=== PATIENT | female | born 1985 | race American Indian/Alaskan Native ===

== ENCOUNTER 2016-06-23 16:55 | Emergency (ER) | payer MEDICAID ==
[2016-06-23 17:33] VITALS: BP 149/94
== END 2016-06-23 21:30 | disposition left against medical advice (07) ==
LOC: ED 16:55
DX: R05 Cough (principal); M79.1 Myalgia; J02.9 Acute pharyngitis, unspecified; Z53.21 Procedure and treatment not carried out due to patient leaving prior to being seen by health care provider

== ENCOUNTER 2021-04-26 09:07 | Emergency (ER) | payer MEDICAID | END 2021-04-26 10:37 | disposition left against medical advice (07) | LOC: ED 09:07 | DX: R53.1 Weakness (principal); Z53.21 Procedure and treatment not carried out due to patient leaving prior to being seen by health care provider ==

== ENCOUNTER 2021-04-27 19:33 | Emergency (ER) | payer MEDICAID ==
--- NOTE | 2021-04-27 20:07 | Emergency Department Report ---
ED Psych HPI - General Chief Complaint: Psych Time Seen by Provider: 04/27/21 19:55 Source: EMS Mode of arrival: Stretcher - History of Present Illness Initial Comments: Patient was brought in by EMS for bizarre behavior. Apparently somebody called because the patient was having bizarre behavior. She reportedly has a history of bipolar disease and has been noncompliant with medications for months. The patient states that she does not know why she is here. She believes that "Jonty" called and she does not know why. She will not tell me how they are related. She states that he must of called because she was rolling around on the floor. She states that she feels well now. She does admit that she probably needs an evaluation. She is not suicidal or homicidal. Patient states that she is not hearing voices. - Related Data Previous Rx's Medication Instructions Recorded Last Taken Type Potassium Chloride [K-Dur] 20 meq PO QDAY #10 tablet 12/14/12 03/05/[address] [Teo Baker] 250 mg PO TID #30 tablet 02/01/13 03/05/13 Rx risperiDONE [RisperDAL] 2 mg PO QDAY #10 tab 02/01/13 03/05/13 Rx Ibuprofen [Motrin] 600 mg PO Q6H PRN #20 tablet 02/13/13 03/05/13 Rx Prednisone 60 mg PO QDAY #12 tablet 02/13/13 03/05/13 Rx hydrOXYzine PAMOATE (NF) [Vistaril 25 mg PO Q6HR PRN #20 capsule 02/13/13 03/05/13 Rx (Nf)] methOCARBAMOL [Robaxin] 750 mg PO BID #14 tab 02/13/13 03/05/13 Rx Acetaminophen/Codeine [Tylenol #3] 1 tab PO Q6H PRN #20 tab 12/06/14 Unknown Rx Clindamycin [Clindamycin CAP] 300 mg PO Q6H #40 capsule 12/06/14 Unknown Rx Fluticasone [Flonase] 2 spray NS QDAY #1 bottle 12/06/14 Unknown Rx Prednisone [predniSONE 10 mg 10 mg PO .TAPER #1 tab.ds.pk 12/06/14 Unknown Rx (6-Day Pack, 21 Tabs)] hydrOXYzine PAMOATE [Vistaril] 25 mg PO Q6HR PRN #20 capsule 12/22/18 Unknown Rx risperiDONE [Risperdal] 2 mg PO QDAY #30 tablet 12/22/18 Unknown Rx Allergies Allergy/AdvReac Type Severity Reaction Status Date / Time Penicillins Allergy Unknown Verified 06/23/16 17:33 diphenhydramine HCl AdvReac Intermediate nausea, Verified 06/23/16 17:33 [From Benadryl] syncope ED Review of Systems ROS: Stated complaint: Other details as noted in HPI Comment: All other systems reviewed and negative Constitutional: denies: fever Eyes: denies: eye pain ENT: denies: throat pain Respiratory: denies: cough Cardiovascular: denies: chest pain Endocrine: denies: unexplained weight loss Gastrointestinal: denies: abdominal pain Genitourinary: denies: dysuria Musculoskeletal: denies: back pain Skin: denies: rash Neurological: denies: headache Psychiatric: as per HPI Hematological/Lymphatic: denies: easy bruising ED Past Medical Hx - Past Medical History Hx Psychiatric Treatment: Yes (schizo-effective, bipolar) Additional medical history: manic/depression - Surgical History Past Surgical History?: Yes - Family History Family history: other (Psychiatric disease) - Social History Smoking Status: Current Every Day Smoker (1/2 pack per day) Substance Use Type: None (denies illicit drug use), Alcohol (occasional) - Medications Home Medications: Home Medications Medication Instructions Recorded Confirmed Last Taken Type Potassium Chloride [K-Dur] 20 meq PO QDAY #10 tablet 12/14/12 03/06/13 03/05/[address] [Teo Dr] 250 mg PO TID #30 tablet 02/01/13 03/06/13 03/05/13 Rx risperiDONE [RisperDAL] 2 mg PO QDAY #10 tab 02/01/13 03/06/13 03/05/13 Rx Ibuprofen [Motrin] 600 mg PO Q6H PRN #20 tablet 02/13/13 03/06/13 03/05/13 Rx Prednisone 60 mg PO QDAY #12 tablet 02/13/13 03/06/13 03/05/13 Rx hydrOXYzine PAMOATE (NF) [Vistaril 25 mg PO Q6HR PRN #20 capsule 02/13/13 03/06/1313 Rx (Nf)] methOCARBAMOL [Robaxin] 750 mg PO BID #14 tab 02/13/13 03/06/13 03/05/13 Rx Acetaminophen/Codeine [Tylenol #3] 1 tab PO Q6H PRN #20 tab 12/06/14 Unknown Rx Clindamycin [Clindamycin CAP] 300 mg PO Q6H #40 capsule 12/06/14 Unknown Rx Fluticasone [Flonase] 2 spray NS QDAY #1 bottle 12/06/14 Unknown Rx Prednisone [predniSONE 10 mg 10 mg PO .TAPER #1 tab.ds.pk 12/06/14 Unknown Rx (6-Day Pack, 21 Tabs)] hydrOXYzine PAMOATE [Vistaril] 25 mg PO Q6HR PRN #20 capsule 12/22/18 Unknown Rx risperiDONE [Risperdal] 2 mg PO QDAY #30 tablet 12/22/18 Unknown Rx ED Physical Exam - General Limitations: No Limitations, Other (Pulse ox noted and normal by EMS) General appearance: alert, in no apparent distress, obese - Head Head exam: Present: atraumatic, normocephalic - Eye Eye exam: Present: normal appearance, EOMI - ENT ENT exam: Present: normal orophraynx, normal external ear exam - Neck Neck exam: Present: normal inspection. Absent: meningismus - Respiratory Respiratory exam: Present: normal lung sounds bilaterally. Absent: respiratory distress - Cardiovascular Cardiovascular Exam: Present: regular rate, normal rhythm - GI/Abdominal GI/Abdominal exam: Present: soft - Extremities Exam Extremities exam: Present: normal capillary refill - Back Exam Back exam: Present: full ROM - Neurological Exam Neurological exam: Present: alert, altered (Patient is mumbling and talking about things that may or may not have happened. She is talking about people but we cannot verify there existence.), CN II-XII intact, normal gait. Absent: motor sensory deficit - Psychiatric Psychiatric exam: Present: anxious, other (Tearful) - Skin Skin exam: Present: warm, dry ED Course - Reevaluation(s) Reevaluation #1: 04/27/21 20:06 EMS was met. Labs and psychiatric evaluation have been ordered. Patient is not actively suicidal or homicidal. She is here on a voluntary basis. Old records noted. 04/27/21 20:06 ED Medical Decision Making - Medical Decision Making Patient presents for psychiatric evaluation. She seems to be demonstrating manic behavior. She is not actively suicidal or homicidal. She does not appear to be grossly unkempt. There is no evidence of delusion. There is no family member present at this time. We will medically evaluate the patient and then have psychiatric services evaluate her in addition. Critical Care Time: No Critical care attestation.: If time is entered above; I have spent that time in minutes in the direct care of this critically ill patient, excluding procedure time. ED Disposition Clinical Impression: Noncompliance, Manic behavior Disposition: 30 STILL A PATIENT Is pt being admited?: No Condition: Stable
[2021-04-27 20:30] LABS: Basophils # (Auto) 0.1 K/mm3 (0.0-0.1); Basophils % (Auto) 0.5 % (0.0-1.8); Eosinophils % (Auto) 0.3 % (0.0-4.3); Hematocrit 28.6 % (30.3-42.9); Hemoglobin 8.6 gm/dl (10.1-14.3); Lymphocytes # (Auto) 2.5 K/mm3 (1.2-5.4); Mean Corpuscular HGB Conc 30 % (30-34); Monocytes # (Auto) 1.6 K/mm3 (0.0-0.8); Monocytes % (Auto) 9.9 % (0.0-7.3); Platelet Count 423 K/mm3 (140-440); Red Blood Count 4.19 M/mm3 (3.65-5.03); Red Cell Distribution Width 19.1 % (13.2-15.2)
[2021-04-27 20:31] LABS: Mean Corpuscular Volume 68 fl (79-97)
[2021-04-27 20:43] LABS: Amphetamine Screen,Urine Negative; Benzodiazepines Screen,Urine Negative; Cannabinoid Screen,Urine Negative; Methadone Screen,Urine Negative; Opiate Screen,Urine Negative
[2021-04-27] MEDS ORDERED: ZIPRASIDONE MESYLATE 20 MG VIAL IM ONE (20:48)
[2021-04-27 20:52] LABS: Alanine Aminotransferase 31 units/L (7-56); Albumin 4.1 g/dL (3.9-5); Blood Urea Nitrogen 5 mg/dL (7-17); Hemolysis Index 1
[2021-04-27 20:53] LABS: BUN/Creatinine Ratio 7
[2021-04-27 20:56] LABS: Cocaine Screen,Urine Positive
[2021-04-27 23:00] LABS: Bilirubin,Urine NEG (Negative); Blood,Urine NEG (Negative); Color,Urine Yellow (Yellow); Protein,Urine <15 mg/dL mg/dL (Negative); RBC,Urine < 1.0 /HPF (0.0-6.0); Urobilinogen,Urine < 2.0 mg/dL (<2.0)
[2021-04-28] MEDS ORDERED: SODIUM CHLORIDE IRRI 500 ML 500 ML IR ONE (08:48)
[2021-04-28 09:05] VITALS: BP 142/81
--- NOTE | 2021-04-28 10:30 | Consultation ---
History of Present Illness - Reason for Consult Consult date: 04/28/21 Reason for consult: Mental health evaluation - History of Present Psychiatric Illness The patient is a 36 year old female who presents to the ED. The patient states she came to the ED for mental health evaluation. The patient is calm, alert and oriented x3. she reports that she was recently released from [facility]. The patient denies any current suicidal/homicidal ideation and denies hallucinations. PAST PSYCHIATRIC HISTORY: Diagnoses: Bipolar Suicide attempts or Self-harm behavior: Denies Prior psychiatric hospitalizations:Yes Substance Abuse history: Denies Previous psychiatric medications tried:Unable to recall Outpatient treatment:unknown PAST MEDICAL HISTORY: Family Psychiatric History: None reported or documented SOCIAL HISTORY Marital Status: Single Living Arrangements: Lives with daughters father Employment Status:Employed Access to guns/weapons: Denies Education:Some college History of Abuse: Denies Legal History:Unknown REVIEW OF SYSTEMS Constitutional: Negative for weight loss ENT: Negative for stridor Respiratory: Negative for cough or hemoptysis All other systems reviewed and are negative MENTAL STATUS EXAMINATION General Appearance and Behavior: Age appropriate, good hygiene, wearing appropriate clothes, cooperative polite with questioning. Cooperation: cooperative Psychomotor Behavior: Normal Mood: calm Affect and affective range:congruent Thought Process:goal directed Thought Content:reality Oriented Speech:Normal Intellectual Functioning: Average Suicidal Ideation:Denies Homicidal Ideation: Denies Hallucination: Denies Impulse Control:Normal Insight and Judgment:limited insight and good judgment Memory: Intact Attention:Normal Orientation: Alert and oriented Diagnoses: (1)Hx Bipolar Treatment Plan: Continue - Home Medications. Patient should be compliant with medications and not to use drugs and not to drink alcohol. PSYCHOTHERAPY: Supportive psychotherapy provided MEDICAL: Per primary team DELIRIUM PRECAUTIONS: Please re-orient patient frequently, keep lights on during the day, and minimize benzodiazepines and opiates as these medications could worsen patient's confusion. COMMUNITY SERVICES COORDINATOR: Per medical team DISPOSITION: Do not recommend acute inpatient psychiatric hospitalization at this time. Validation Consultant will provide patient with psychiatric out-patient resources FOLLOW-UP: Will sign off. Thank you for the consult. Please contact with any questions and/or concerns. Medications and Allergies Allergies Medications and Allergies Allergies Allergy/AdvReac Type Severity Reaction Status Date / Time Penicillins Allergy Unknown Verified 06/23/16 17:33 diphenhydramine HCl AdvReac Intermediate nausea, Verified 06/23/16 17:33 [From [facility]] syncope Home Medications Medication Instructions Recorded Confirmed Last Taken Type Potassium Chloride [K-Dur] 20 meq PO QDAY #10 tablet 12/14/12 03/06/13 03/05/13 Rx Divalproex [Teo Baker] 250 mg PO TID #30 tablet 02/01/13 03/06/13 03/05/13 Rx risperiDONE [RisperDAL] 2 mg PO QDAY #10 tab 02/01/13 03/06/13 03/05/13 Rx Ibuprofen [Motrin] 600 mg PO Q6H PRN #20 tablet 02/13/13 03/06/13 03/05/13 Rx Prednisone 60 mg PO QDAY #12 tablet 02/13/13 03/06/13 03/05/13 Rx hydrOXYzine PAMOATE (NF) [Vistaril 25 mg PO Q6HR PRN #20 capsule 02/13/13 03/06/13 03/05/13 Rx (Nf)] methOCARBAMOL [Robaxin] 750 mg PO BID #14 tab 02/13/13 03/06/13 03/05/13 Rx Acetaminophen/Codeine [Tylenol #3] 1 tab PO Q6H PRN #20 tab 12/06/14 Unknown Rx Clindamycin [Clindamycin CAP] 300 mg PO Q6H #40 capsule 12/06/14 Unknown Rx Fluticasone [Flonase] 2 spray NS QDAY #1 bottle 12/06/14 Unknown Rx Prednisone [predniSONE 10 mg 10 mg PO .TAPER #1 tab.ds.pk 12/06/14 Unknown Rx (6-Day Pack, 21 Tabs)] hydrOXYzine PAMOATE [Vistaril] 25 mg PO Q6HR PRN #20 capsule 12/22/18 Unknown Rx risperiDONE [Risperdal] 2 mg PO QDAY #30 tablet 12/22/18 Unknown Rx Mental Status Exam - Vital signs Last Vital Signs Temp 98.2 F 04/28/21 09:04 Pulse 103 H 04/28/21 09:04 Resp 18 04/28/21 09:04 BP 142/81 04/28/21 09:04 Pulse Ox 99 04/28/21 09:04 Results Result Diagrams: 04/27/21 20:13 04/27/21 20:13 Abnormal lab results 04/27/21 04/27/21 Range/Units 20:13 20:13 WBC 15.8 H (4.5-11.0) K/mm3 Hgb 8.6 L (10.1-14.3) gm/dl Hct 28.6 L (30.3-42.9) % MCV 68 L (79-97) fl MCH 20 L (28-32) pg RDW 19.1 H (13.2-15.2) % [place] % (Auto) 9.9 H (0.0-7.3) % [place] # (Auto) 1.6 H (0.0-0.8) K/mm3 Seg Neutrophils % 73.3 H (40.0-70.0) % Seg Neutrophils # 11.6 H (1.8-7.7) K/mm3 BUN 5 L (7-17) mg/dL Glucose 105 H (65-100) mg/dL AST 54 H (5-40) units/L All other labs normal.
--- NOTE | 2021-04-28 12:35 | Emergency Department Report ---
Blank Doc - Documentation Documentation: Chart reviewed: Patient with history of bipolar disorder presented with manic/ bizarre behavior. As per mental health note patient was recently discharged from [facility]. She has been cleared by mental health for discharge to continue current medications. UDS positive for cocaine
== END 2021-04-28 12:57 | disposition home or self-care (01) ==
LOC: ED 19:33 → EEVIPCON 19:33 → ED 04-28 12:57
DX: F31.9 Bipolar disorder, unspecified (principal); Z91.19 Patient's noncompliance with other medical treatment and regimen; F25.9 Schizoaffective disorder, unspecified; F17.200 Nicotine dependence, unspecified, uncomplicated; Z88.0 Allergy status to penicillin; Z88.1 Allergy status to other antibiotic agents; Z79.899 Other long term (current) drug therapy; Z98.890 Other specified postprocedural states
CPT/HCPCS: 36415; 80053; 80307; 81001; 84443; 84703; 85025; 96372; 99284; J3486; 80320; G0480

== ENCOUNTER 2021-07-21 12:56 | Emergency (ER) | payer MEDICAID ==
[2021-07-21 14:17] VITALS: BP 137/94
--- NOTE | 2021-07-21 14:43 | Emergency Department Report ---
ED Psych HPI - General Chief Complaint: Psych Stated Complaint: PTSD Time Seen by Provider: 07/21/21 14:40 Source: patient Mode of arrival: Ambulatory - History of Present Illness Initial Comments: Patient is 36 years old female with history of bipolar disorder. Patient presented to the ER stating that she wanted mental health evaluation. Patient told the triage nurse that somebody is trying to get her when she went to a hotel. Patient is delusional and paranoid. Upon my interview with the patient is answering no for all questions. He denies suicidal or homicidal ideation. She also denied any visual or auditory hallucination. MD Complaint: altered mental status - Related Data Previous Rx's Medication Instructions Recorded Last Taken Type Potassium Chloride [K-Dur] 20 meq PO QDAY #10 tablet 12/14/12 03/05/[address] [Depakote Dr] 250 mg PO TID #30 tablet 02/01/13 03/05/13 Rx risperiDONE [RisperDAL] 2 mg PO QDAY #10 tab 02/01/13 03/05/13 Rx Ibuprofen [Motrin] 600 mg PO Q6H PRN #20 tablet 02/13/13 03/05/13 Rx Prednisone 60 mg PO QDAY #12 tablet 02/13/13 03/05/13 Rx hydrOXYzine PAMOATE (NF) [Vistaril 25 mg PO Q6HR PRN #20 capsule 02/13/13 03/05/13 Rx (Nf)] methOCARBAMOL [Robaxin] 750 mg PO BID #14 tab 02/13/13 03/05/13 Rx Acetaminophen/Codeine [Tylenol #3] 1 tab PO Q6H PRN #20 tab 12/06/14 Unknown Rx Clindamycin [Clindamycin CAP] 300 mg PO Q6H #40 capsule 12/06/14 Unknown Rx Fluticasone [Flonase] 2 spray NS QDAY #1 bottle 12/06/14 Unknown Rx Prednisone [predniSONE 10 mg 10 mg PO .TAPER #1 tab.ds.pk 12/06/14 Unknown Rx (6-Day Pack, 21 Tabs)] hydrOXYzine PAMOATE [Vistaril] 25 mg PO Q6HR PRN #20 capsule 12/22/18 Unknown Rx risperiDONE [Risperdal] 2 mg PO QDAY #30 tablet 12/22/18 Unknown Rx Allergies Allergy/AdvReac Type Severity Reaction Status Date / Time Penicillins Allergy Unknown Verified 06/23/16 17:33 diphenhydramine HCl AdvReac Intermediate nausea, Verified 06/23/16 17:33 [From Benadryl] syncope ED Review of Systems ROS: Stated complaint: PTSD Other details as noted in HPI Comment: All other systems reviewed and negative Constitutional: denies: chills, fever Respiratory: denies: cough, shortness of breath, SOB with exertion Cardiovascular: palpitations. denies: chest pain Gastrointestinal: denies: abdominal pain, nausea, vomiting ED Past Medical Hx - Past Medical History Hx Psychiatric Treatment: Yes (schizo-effective, bipolar) Additional medical history: manic/depression - Surgical History Past Surgical History?: No - Social History Smoking Status: Never Smoker Substance Use Type: None - Medications Home Medications: Home Medications Medication Instructions Recorded Confirmed Last Taken Type Potassium Chloride [K-Dur] 20 meq PO QDAY #10 tablet 12/14/12 03/06/13 03/05/[address] [Teo Dr] 250 mg PO TID #30 tablet 02/01/13 03/06/13 03/05/13 Rx risperiDONE [RisperDAL] 2 mg PO QDAY #10 tab 02/01/13 03/06/13 03/05/13 Rx Ibuprofen [Motrin] 600 mg PO Q6H PRN #20 tablet 02/13/13 03/06/13 03/05/13 Rx Prednisone 60 mg PO QDAY #12 tablet 02/13/13 03/06/13 03/05/13 Rx hydrOXYzine PAMOATE (NF) [Vistaril 25 mg PO Q6HR PRN #20 capsule 02/13/13 03/06/13 03/05/13 Rx (Nf)] methOCARBAMOL [Robaxin] 750 mg PO BID #14 tab 02/13/13 03/06/13 03/05/13 Rx Acetaminophen/Codeine [Tylenol #3] 1 tab PO Q6H PRN #20 tab 12/06/14 Unknown Rx Clindamycin [Clindamycin CAP] 300 mg PO Q6H #40 capsule 12/06/14 Unknown Rx Fluticasone [Flonase] 2 spray NS QDAY #1 bottle 12/06/14 Unknown Rx Prednisone [predniSONE 10 mg 10 mg PO .TAPER #1 tab.ds.pk 12/06/14 Unknown Rx (6-Day Pack, 21 Tabs)] hydrOXYzine PAMOATE [Vistaril] 25 mg PO Q6HR PRN #20 capsule 12/22/18 Unknown Rx risperiDONE [Risperdal] 2 mg PO QDAY #30 tablet 12/22/18 Unknown Rx ED Physical Exam - General Limitations: Altered Mental Status General appearance: alert, in no apparent distress - Head Head exam: Present: atraumatic, normocephalic, normal inspection - Eye Eye exam: Present: normal appearance - ENT ENT exam: Present: normal exam, normal orophraynx, mucous membranes moist - Neck Neck exam: Present: normal inspection, full ROM. Absent: tenderness, meningismus - Respiratory Respiratory exam: Present: normal lung sounds bilaterally - Cardiovascular Cardiovascular Exam: Present: regular rate, normal rhythm, normal heart sounds - GI/Abdominal GI/Abdominal exam: Present: soft, normal bowel sounds. Absent: distended, tenderness, guarding, rebound, rigid, organomegaly, mass, bruit, pulsatile mass, hernia - Extremities Exam Extremities exam: Present: normal inspection, full ROM, normal capillary refill. Absent: tenderness, pedal edema, calf tenderness - Back Exam Back exam: Present: normal inspection, full ROM. Absent: CVA tenderness (R), CVA tenderness (L) - Neurological Exam Neurological exam: Present: alert, oriented X3, CN II-XII intact, normal gait, reflexes normal. Absent: motor sensory deficit - Psychiatric Psychiatric exam: Present: normal mood - Skin Skin exam: Present: warm, intact, normal color ED Course Vital Signs 07/21/21 07/21/21 13:55 14:49 Temperature 98.6 F Pulse Rate 110 H Respiratory 20 Rate Blood Pressure 137/94 O2 Sat by Pulse 100 98 Oximetry ED Medical Decision Making - Lab Data Result diagrams: 07/21/21 15:12 07/21/21 15:12 - Medical Decision Making Patient is 36 years old female with history of bipolar disorder. Patient presented to the ER stating that she wanted mental health evaluation. Patient told the triage nurse that somebody is trying to get her when she went to a hotel. Patient is delusional and paranoid. Upon my interview with the patient is answering no for all questions. He denies suicidal or homicidal ideation. She also denied any visual or auditory hallucination. Patient has been evaluated by our psychiatric team and recommended outpatient treatment. Patient is medically and psychiatrically stable. Patient still denying any suicidal or homicidal ideation. No visual or auditory hallucination. Critical care attestation.: If time is entered above; I have spent that time in minutes in the direct care of this critically ill patient, excluding procedure time. ED Disposition Clinical Impression: Bipolar 1 disorder Disposition: HOME / SELF CARE / HOMELESS Is pt being admited?: No Condition: Stable Instructions: Managing Bipolar Disorder Additional Instructions: HOMELESS RESOURCES: [facility] NEED HELP? If you are in need of help or know someone who does, please contact us at [email or web address] or call , or come to our offices at [address] [place] [address], Sunday-Sunday beginning 9:30 AM-1:30 PM -Support services help people with getting identification and legal documents -Homeless verification letter -Facesheet (if needed) City of Refuge: [facility]orene [facility] Address: [facility] [place] [address] How do I join the [facility] housing program? Our housing programs are offered based on availability. If you are looking to participate in our housing program, simply call [phone] to find out if we have available space. Since we do receive many calls, please allow up to 48 hours for one of our housing specialists to return your call. If we do not have vacancies, we suggest calling the [facility] hotline at 211 for additional housing options. The [facility] Admission from 8am to 10am Daily Address: [address] , [place] [address] [facility] WOMEN and FAMILY Admission Address: [address], [place] [address] OUTPATIENT MENTAL HEALTH RESOURCES [facility], [facility] Ezekiel Nichole MD: [address] [place] [address] [place] [address] [facility]: [employer] [facility] [address] [place] [address] [place] [address] [phone] [facility]: [facility]: [address] [place] [address] [facility] [address] [facility]: Spencer Lowery MD: [id number] [facility] [address] [facility] [id number] [facility]: [address] [place], [place] [id number] [phone] [place] CRISIS AND ACCESS LINE: Referrals: RAJENDRA LEWIS MD [Primary Care Provider] - 3-5 Days
[2021-07-21 14:58] LABS: Bacteria,Urine 1+ /HPF (Negative); Bilirubin,Urine NEG (Negative); Blood,Urine NEG (Negative); Color,Urine Yellow (Yellow); Mucus,Urine FEW /HPF; Protein,Urine <15 mg/dL mg/dL (Negative); Urobilinogen,Urine < 2.0 mg/dL (<2.0)
[2021-07-21 15:19] LABS: Amphetamine Screen,Urine Negative; Benzodiazepines Screen,Urine Negative; Cannabinoid Screen,Urine Negative; Cocaine Screen,Urine Negative; Methadone Screen,Urine Negative; Opiate Screen,Urine Negative
[2021-07-21 15:42] LABS: BUN/Creatinine Ratio 7; Blood Urea Nitrogen 4 mg/dL (7-17); Hemolysis Index 2
[2021-07-21 15:50] LABS: Basophils % (Auto) 0.1 % (0.0-1.8); Lymphocytes # (Auto) 1.4 K/mm3 (1.2-5.4); Lymphocytes % (Auto) 10.2 % (13.4-35.0); Mean Corpuscular HGB Conc 30 % (30-34); Monocytes # (Auto) 0.8 K/mm3 (0.0-0.8); Monocytes % (Auto) 5.9 % (0.0-7.3); Platelet Count 393 K/mm3 (140-440); Red Blood Count 4.32 M/mm3 (3.65-5.03)
[2021-07-21 15:51] LABS: Hematocrit 27.6 % (30.3-42.9); Hemoglobin 8.2 gm/dl (10.1-14.3); Mean Corpuscular Volume 64 fl (79-97); Red Cell Distribution Width 21.3 % (13.2-15.2)
== END 2021-07-21 16:46 | disposition home or self-care (01) ==
LOC: ED 12:56
DX: F31.9 Bipolar disorder, unspecified (principal); Z88.0 Allergy status to penicillin
CPT/HCPCS: 36415; 80048; 80307; 80320; 81001; 84703; 85025; 87086; 99284; G0480

== ENCOUNTER 2021-07-27 23:09 | Emergency (ER) | payer MEDICAID ==
--- NOTE | 2021-07-28 07:51 | Emergency Department Report ---
ED General Adult HPI - General Chief complaint: Medical Clearance Stated complaint: ABD PAIN Time Seen by Provider: 07/28/21 07:46 Source: patient Mode of arrival: Ambulatory Limitations: No Limitations - History of Present Illness Initial comments: 36-year-old -[place] female who reports a history of bipolar disorder presents to the ER today requesting refill on her Zyprexa. She states that she takes Zyprexa 5 mg. She states that she has been out for about 2 months. She states that she is not here for any abdominal pain she is received for refill of her Zyprexa. She denies any symptoms at this time. Complaint: Zyprexa refill -: month(s) (2) - Related Data Previous Rx's Medication Instructions Recorded Last Taken Type Potassium Chloride [K-Dur] 20 meq PO QDAY #10 tablet 12/14/12 03/05/[address] [Depakote Dr] 250 mg PO TID #30 tablet 02/01/13 03/05/13 Rx risperiDONE [RisperDAL] 2 mg PO QDAY #10 tab 02/01/13 03/05/13 Rx Ibuprofen [Motrin] 600 mg PO Q6H PRN #20 tablet 02/13/13 03/05/13 Rx Prednisone 60 mg PO QDAY #12 tablet 02/13/13 03/05/13 Rx hydrOXYzine PAMOATE (NF) [Vistaril 25 mg PO Q6HR PRN #20 capsule 02/13/13 03/05/13 Rx (Nf)] methOCARBAMOL [Robaxin] 750 mg PO BID #14 tab 02/13/13 03/05/13 Rx Acetaminophen/Codeine [Tylenol #3] 1 tab PO Q6H PRN #20 tab 12/06/14 Unknown Rx Clindamycin [Clindamycin CAP] 300 mg PO Q6H #40 capsule 12/06/14 Unknown Rx Fluticasone [Flonase] 2 spray NS QDAY #1 bottle 12/06/14 Unknown Rx Prednisone [predniSONE 10 mg 10 mg PO .TAPER #1 tab.ds.pk 12/06/14 Unknown Rx (6-Day Pack, 21 Tabs)] hydrOXYzine PAMOATE [Vistaril] 25 mg PO Q6HR PRN #20 capsule 09/22/19 Unknown Rx risperiDONE [Risperdal] 2 mg PO QDAY #30 tablet 12/22/18 Unknown Rx OLANzapine [ZyPREXA] 5 mg PO QDAY #30 tablet 07/28/21 Unknown Rx Allergies Allergy/AdvReac Type Severity Reaction Status Date / Time Penicillins Allergy Unknown Verified 07/28/21 00:24 diphenhydramine HCl AdvReac Intermediate nausea, Verified 07/28/21 00:24 [From Benadryl] syncope ED Review of Systems ROS: Stated complaint: ABD PAIN Other details as noted in HPI Comment: All other systems reviewed and negative Respiratory: denies: cough, shortness of breath, wheezing Cardiovascular: denies: chest pain, palpitations Gastrointestinal: denies: abdominal pain, nausea, diarrhea Genitourinary: denies: urgency, dysuria, discharge Psychiatric: denies: auditory hallucinations, visual hallucinations, homicidal thoughts, suicidal thoughts ED Past Medical Hx - Past Medical History Previous Medical History?: No Hx Psychiatric Treatment: Yes (schizo-effective, bipolar) Additional medical history: manic/depression - Surgical History Past Surgical History?: No - Social History Smoking Status: Never Smoker Substance Use Type: None - Medications Home Medications: Home Medications Medication Instructions Recorded Confirmed Last Taken Type Potassium Chloride [K-Dur] 20 meq PO QDAY #10 tablet 12/14/12 03/06/13 03/05/13 Rx Divalproex [Teo Baker] 250 mg PO TID #30 tablet 02/01/13 03/06/13 03/05/13 Rx risperiDONE [RisperDAL] 2 mg PO QDAY #10 tab 02/01/13 03/06/13 03/05/13 Rx Ibuprofen [Motrin] 600 mg PO Q6H PRN #20 tablet 02/13/13 03/06/13 03/05/13 Rx Prednisone 60 mg PO QDAY #12 tablet 02/13/13 03/06/13 03/05/13 Rx hydrOXYzine PAMOATE (NF) [Vistaril 25 mg PO Q6HR PRN #20 capsule 02/13/13 03/06/13 03/05/13 Rx (Nf)] methOCARBAMOL [Robaxin] 750 mg PO BID #14 tab 02/13/13 03/06/13 03/05/13 Rx Acetaminophen/Codeine [Tylenol #3] 1 tab PO Q6H PRN #20 tab 12/06/14 Unknown Rx Clindamycin [Clindamycin CAP] 300 mg PO Q6H #40 capsule 12/06/14 Unknown Rx Fluticasone [Flonase] 2 spray NS QDAY #1 bottle 12/06/14 Unknown Rx Prednisone [predniSONE 10 mg 10 mg PO .TAPER #1 tab.ds.pk 12/06/14 Unknown Rx (6-Day Pack, 21 Tabs)] hydrOXYzine PAMOATE [Vistaril] 25 mg PO Q6HR PRN #20 capsule 12/22/18 Unknown Rx risperiDONE [Risperdal] 2 mg PO QDAY #30 tablet 12/22/18 Unknown Rx OLANzapine [ZyPREXA] 5 mg PO QDAY #30 tablet 07/28/21 Unknown Rx ED Physical Exam - General Limitations: No Limitations General appearance: alert, in no apparent distress - Respiratory Respiratory exam: Absent: respiratory distress - Cardiovascular Cardiovascular Exam: Present: regular rate, normal rhythm. Absent: systolic murmur, diastolic murmur, rubs, gallop - Neurological Exam Neurological exam: Present: alert, oriented X3, CN II-XII intact, normal gait - Psychiatric Psychiatric exam: Present: normal affect, agitated - Skin Skin exam: Present: intact ED Course Vital Signs 07/28/21 00:22 Temperature 99.1 F Pulse Rate 116 H Respiratory 20 Rate Blood Pressure 146/109 O2 Sat by Pulse 100 Oximetry Critical care attestation.: If time is entered above; I have spent that time in minutes in the direct care of this critically ill patient, excluding procedure time. ED Disposition Clinical Impression: Medication refill Disposition: HOME / SELF CARE / HOMELESS Is pt being admited?: No Does the pt Need Aspirin: No Condition: Stable Instructions: Medicine Refill at the Emergency Department Prescriptions: OLANzapine [ZyPREXA] 5 mg PO QDAY #30 tablet Referrals: RAJENDRA LEWIS MD [Primary Care Provider] - 3-5 Days Time of Disposition: 07:50
[2021-07-28 08:02] VITALS: BP 148/92
== END 2021-07-28 08:20 | disposition home or self-care (01) ==
LOC: ED 23:09
DX: R10.9 Unspecified abdominal pain (principal); Z76.0 Encounter for issue of repeat prescription; Z88.0 Allergy status to penicillin; Z88.8 Allergy status to other drugs, medicaments and biological substances; F31.9 Bipolar disorder, unspecified
CPT/HCPCS: 99282

== ENCOUNTER 2021-07-29 09:17 | Emergency (ER) | payer MEDICAID ==
[2021-07-29 10:10] VITALS: BP 142/82
--- NOTE | 2021-07-29 13:37 | XRay Report ---
XR foot 3+V RT INDICATION / CLINICAL INFORMATION: pain and swellin. COMPARISON: None available. FINDINGS: BONES/JOINT(S): No acute fracture or subluxation. No significant degenerative changes. No focal bone erosions or focal osteopenia to suggest inflammatory arthropathy. SOFT TISSUES: No significant abnormality. ADDITIONAL FINDINGS: None. Signer Name: Segundo Pineda MD Signed: 07/29/2021 1:33 PM Workstation Name: [id number]
--- NOTE | 2021-07-29 13:37 | XRay Report ---
XR tibia fibula 2V LT INDICATION / CLINICAL INFORMATION: pain and swelling. COMPARISON: None available. FINDINGS: BONES/JOINT(S): No acute fracture or subluxation. No significant degenerative changes. No focal bone erosions or focal osteopenia to suggest inflammatory arthropathy. SOFT TISSUES: No significant abnormality. ADDITIONAL FINDINGS: None. Signer Name: Segundo Pineda MD Signed: 07/29/2021 1:32 PM Workstation Name: [id number]
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
== END 2021-07-30 01:00 | disposition left against medical advice (07) ==
LOC: ED 09:17
DX: M79.605 Pain in left leg (principal); R22.42 Localized swelling, mass and lump, left lower limb
CPT/HCPCS: 99282

== ENCOUNTER 2021-07-31 06:33 | Emergency (ER) | payer MEDICAID ==
[2021-07-31] MEDS ORDERED: ONDANSETRON 4 MG ODT TAB PO ONE (11:11)
[2021-07-31] MEDS ORDERED: PANTOPRAZOLE 40 MG TAB PO ONE (11:11)
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
[2021-07-31 11:39] LABS: RBC,Urine < 1.0 /HPF (0.0-6.0)
[2021-07-31 11:40] LABS: HCG Qualitative,Urine Negative (Negative); WBC,Urine < 1.0 /HPF (0.0-6.0)
[2021-07-31 12:43] LABS: Hematocrit 27.3 % (30.3-42.9); Hemoglobin 7.8 gm/dl (10.1-14.3)
[2021-07-31 12:53] LABS: Alanine Aminotransferase 31 units/L (7-56); Albumin 3.9 g/dL (3.9-5); Blood Urea Nitrogen 7 mg/dL (7-17); Calcium 8.6 mg/dL (8.4-10.2); Hemolysis Index 3
[2021-07-31 12:55] LABS: BUN/Creatinine Ratio 14
[2021-07-31 15:13] VITALS: BP 142/83
--- NOTE | 2021-08-01 13:43 | Electrocardiograph Report ---
[facility] Test Date: 2021-07-31 Test Time: 11:12:29 Pat Name: CORINNE VASQUEZ Department: Room: Gender: F Cardiac Tech: JUAN A : 1985 Requested By: MAGNO CHAVEZ Order Number: [id number] Reading MD: Tobias Yarbrough Measurements Intervals [place] Rate: 96 P: 69 AL: 168 QRS: 31 QRSD: 85 T: 60 QT: 362 QTc: 458 Interpretive Statements Sinus rhythm Probable left atrial enlargement No previous ECG available for comparison Electronically Signed On 08-01-2021 13:43:16 EDT by Tobias Yarbrough
== END 2021-07-31 15:14 | disposition home or self-care (01) ==
LOC: ED 06:33
DX: Z13.30 Encounter for screening examination for mental health and behavioral disorders, unspecified (principal); D64.9 Anemia, unspecified; R10.9 Unspecified abdominal pain; F20.9 Schizophrenia, unspecified; F31.9 Bipolar disorder, unspecified; Z79.899 Other long term (current) drug therapy; Z88.0 Allergy status to penicillin; Z88.8 Allergy status to other drugs, medicaments and biological substances
CPT/HCPCS: 36415; 80053; 80320; 81015; 81025; 85014; 85018; 93005; 99284; J3490; G0480; Q0162

== ENCOUNTER 2021-08-13 01:43 | Emergency (ER) | payer MEDICAID ==
[2021-08-13 01:54] VITALS: BP 134/76
== END 2021-08-13 10:32 | disposition left against medical advice (07) ==
LOC: ED 01:43
DX: Z53.21 Procedure and treatment not carried out due to patient leaving prior to being seen by health care provider (principal); Y09 Assault by unspecified means

== ENCOUNTER 2021-08-20 16:08 | Emergency (ER) | payer MEDICAID ==
[2021-08-20 16:21] VITALS: BP 143/81
== END 2021-08-21 01:40 | disposition left against medical advice (07) ==
LOC: ED 16:08
DX: Z00.8 Encounter for other general examination (principal); Z59.00 Homelessness unspecified; Z53.21 Procedure and treatment not carried out due to patient leaving prior to being seen by health care provider

== ENCOUNTER 2021-08-30 02:53 | Emergency (ER) | payer MEDICAID ==
[2021-08-30 03:01] VITALS: BP 140/90
== END 2021-08-30 07:35 | disposition left against medical advice (07) ==
LOC: ED 02:53
DX: M79.89 Other specified soft tissue disorders (principal); Z53.21 Procedure and treatment not carried out due to patient leaving prior to being seen by health care provider

== ENCOUNTER 2021-08-31 23:00 | Emergency (ER) | payer MEDICAID ==
[2021-08-31 23:27] VITALS: BP 122/68
== END 2021-08-31 23:38 | disposition left against medical advice (07) ==
LOC: ED 23:00 → EEVIPCON 23:00 → ED 23:38
DX: Z00.8 Encounter for other general examination (principal); Z53.21 Procedure and treatment not carried out due to patient leaving prior to being seen by health care provider

== ENCOUNTER 2021-09-02 01:48 | Emergency (ER) | payer MEDICAID ==
[2021-09-02 02:02] VITALS: BP 129/90
== END 2021-09-02 10:18 | disposition left against medical advice (07) ==
LOC: ED 01:48
DX: R11.0 Nausea (principal); Z53.21 Procedure and treatment not carried out due to patient leaving prior to being seen by health care provider

== ENCOUNTER 2021-09-05 01:12 | Emergency (ER) | payer MEDICAID ==
[2021-09-05 04:39] LABS: Bacteria,Urine 1+ /HPF (Negative); Bilirubin,Urine NEG (Negative); Blood,Urine NEG (Negative); Color,Urine Yellow (Yellow); Mucus,Urine FEW /HPF; Protein,Urine <15 mg/dL mg/dL (Negative); Urobilinogen,Urine < 2.0 mg/dL (<2.0)
[2021-09-05 04:40] LABS: HCG Qualitative,Urine Negative (Negative)
--- NOTE | 2021-09-05 09:54 | Emergency Department Report ---
- General Chief complaint: Skin/Abscess/Foreign Body Stated complaint: TAMPON STUCK Time Seen by Provider: 09/05/21 09:31 Source: patient Mode of arrival: Ambulatory Limitations: No Limitations - History of Present Illness Initial comments: This is a 36-year-old -[place] female who presents to the ER for possible foreign body removal. Patient states a tampon is stuck in her for 4 days. Patient states she is homeless and she has tried to remove it but unable. She thinks the tampon is all over her body now. She denies vaginal discharge, pelvic pain, back pain. MD complaint: foreign body Onset/Timin -: days(s) Tetanus Up to Date: unsure Severity scale (0 -10): 0 Associated symptoms: denies other symptoms - Related Data Previous Rx's Medication Instructions Recorded Last Taken Type Potassium Chloride [K-Dur] 20 meq PO QDAY #10 tablet 12/14/12 03/05/[address] [Depakote Dr] 250 mg PO TID #30 tablet 02/01/13 03/05/13 Rx risperiDONE [RisperDAL] 2 mg PO QDAY #10 tab 02/01/13 03/05/13 Rx Ibuprofen [Motrin] 600 mg PO Q6H PRN #20 tablet 02/13/13 03/05/13 Rx Fluticasone [Flonase] 2 spray NS QDAY #1 bottle 12/06/14 Unknown Rx hydrOXYzine PAMOATE [Vistaril] 25 mg PO Q6HR PRN #20 capsule 12/22/18 Unknown Rx risperiDONE [Risperdal] 2 mg PO QDAY #30 tablet 12/22/18 Unknown Rx OLANzapine [ZyPREXA] 5 mg PO QDAY #30 tablet 07/28/21 Unknown Rx Ferrous Sulfate [Feosol 325 MG tab] 325 mg PO BID #60 tablet 07/31/21 Unknown Rx Allergies Allergy/AdvReac Type Severity Reaction Status Date / Time Penicillins Allergy Unknown Verified 07/31/21 06:56 diphenhydramine HCl AdvReac Intermediate nausea, Verified 07/31/21 06:56 [From Benadryl] syncope Abscess Boil HPI - HPI Chief Complaint: Skin/Abscess/Foreign Body Stated Complaint: TAMPON STUCK Time Seen by Provider: 09/05/21 09:31 Home Medications: Previous Rx's Medication Instructions Recorded Last Taken Type Potassium Chloride [K-Dur] 20 meq PO QDAY #10 tablet 12/14/12 03/05/13 Rx Divalproex [Teo Baker] 250 mg PO TID #30 tablet 02/01/13 03/05/13 Rx risperiDONE [RisperDAL] 2 mg PO QDAY #10 tab 02/01/13 03/05/13 Rx Ibuprofen [Motrin] 600 mg PO Q6H PRN #20 tablet 02/13/13 03/05/13 Rx Fluticasone [Flonase] 2 spray NS QDAY #1 bottle 12/06/14 Unknown Rx hydrOXYzine PAMOATE [Vistaril] 25 mg PO Q6HR PRN #20 capsule 12/22/18 Unknown Rx risperiDONE [Risperdal] 2 mg PO QDAY #30 tablet 12/22/18 Unknown Rx OLANzapine [ZyPREXA] 5 mg PO QDAY #30 tablet 07/28/21 Unknown Rx Ferrous Sulfate [Feosol 325 MG tab] 325 mg PO BID #60 tablet 07/31/21 Unknown Rx Allergies/Adverse Reactions: Allergies Allergy/AdvReac Type Severity Reaction Status Date / Time Penicillins Allergy Unknown Verified 07/31/21 06:56 diphenhydramine HCl AdvReac Intermediate nausea, Verified 07/31/21 06:56 [From Benadryl] syncope ED Review of Systems ROS: Stated complaint: TAMPON STUCK Other details as noted in HPI Constitutional: denies: chills, fever Respiratory: denies: cough, shortness of breath, wheezing Cardiovascular: denies: chest pain, palpitations Genitourinary: denies: urgency, dysuria, discharge Musculoskeletal: denies: back pain, joint swelling, arthralgia Skin: as per HPI Neurological: denies: headache, weakness, paresthesias Psychiatric: denies: anxiety, depression ED Past Medical Hx - Past Medical History Hx Psychiatric Treatment: Yes (schizo-effective, bipolar) Additional medical history: manic/depression - Social History Smoking Status: Unknown if ever smoked - Medications Home Medications: Home Medications Medication Instructions Recorded Confirmed Last Taken Type Potassium Chloride [K-Dur] 20 meq PO QDAY #10 tablet 12/14/12 03/06/13 03/05/13 Rx Divalproex [Depakote Dr] 250 mg PO TID #30 tablet 02/01/13 03/06/13 03/05/13 Rx risperiDONE [RisperDAL] 2 mg PO QDAY #10 tab 02/01/13 03/06/13 03/05/13 Rx Ibuprofen [Motrin] 600 mg PO Q6H PRN #20 tablet 02/13/13 03/06/13 03/05/13 Rx Fluticasone [Flonase] 2 spray NS QDAY #1 bottle 12/06/14 Unknown Rx hydrOXYzine PAMOATE [Vistaril] 25 mg PO Q6HR PRN #20 capsule 12/22/18 Unknown Rx risperiDONE [Risperdal] 2 mg PO QDAY #30 tablet 12/22/18 Unknown Rx OLANzapine [ZyPREXA] 5 mg PO QDAY #30 tablet 07/28/21 Unknown Rx Ferrous Sulfate [Feosol 325 MG tab] 325 mg PO BID #60 tablet 07/31/21 Unknown Rx ED Physical Exam - General Limitations: No Limitations General appearance: alert, in no apparent distress, obese - Head Head exam: Present: atraumatic, normocephalic - Respiratory Respiratory exam: Present: normal lung sounds bilaterally. Absent: respiratory distress - Cardiovascular Cardiovascular Exam: Present: regular rate, normal rhythm. Absent: systolic murmur, diastolic murmur, rubs, gallop - GI/Abdominal GI/Abdominal exam: Present: soft, normal bowel sounds. Absent: distended, tenderness, guarding, rebound - External exam: Present: normal external exam Speculum exam: Present: normal speculum exam. Absent: vaginal discharge, foreign body Bi-manual exam: Present: normal bi-manual exam - Neurological Exam Neurological exam: Present: alert, oriented X3, normal gait - Psychiatric Psychiatric exam: Present: normal affect, normal mood - Skin Skin exam: Present: warm, dry, intact, normal color. Absent: rash ED Course Vital Signs 09/05/21 04:08 Temperature 98.0 F Pulse Rate 118 H Respiratory 18 Rate Blood Pressure 124/74 O2 Sat by Pulse 100 Oximetry Vital Signs 09/05/21 09/05/21 04:08 10:26 Temperature 98.0 F 98 F Pulse Rate 118 H 68 Respiratory 18 Rate Blood Pressure 124/74 Blood Pressure 135/79 [Right] O2 Sat by Pulse 100 Oximetry ED Medical Decision Making - Medical Decision Making This is a 36 y.o. female that presents with possible vaginal foreign body. Patient is stable and was examined by me. Vitals stable. Pelvic exam performed with no foreign body visualized. Normal vaginal and abdominal exam. Instructed to monitor for vaginal discharge or pelvic pain. No further questions noted by the patient. Discharged home in stable condition. Follow up with PCP in 2-3 days. Critical care attestation.: If time is entered above; I have spent that time in minutes in the direct care of this critically ill patient, excluding procedure time. ED Disposition Clinical Impression: Feared complaint without diagnosis Disposition: 01 HOME / SELF CARE / HOMELESS Is pt being admited?: No Condition: Stable Referrals: RAJENDRA LEWIS MD [Primary Care Provider] - 3-5 Days Time of Disposition: 10:27
[2021-09-05 10:27] VITALS: BP 135/79
== END 2021-09-05 10:34 | disposition home or self-care (01) ==
LOC: ED 01:12
DX: Z71.1 Person with feared health complaint in whom no diagnosis is made (principal); F25.0 Schizoaffective disorder, bipolar type; F30.9 Manic episode, unspecified
CPT/HCPCS: 81001; 81025; 99284

== ENCOUNTER 2021-09-08 02:01 | Emergency (ER) | payer MEDICAID ==
[2021-09-08 04:01] VITALS: BP 156/90
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
[2021-09-08] MEDS ORDERED: IBUPROFEN 800 MG TAB PO ONE (12:38)
== END 2021-09-08 13:00 | disposition home or self-care (01) ==
LOC: ED 02:01
DX: M79.10 Myalgia, unspecified site (principal); W19.XXXA Unspecified fall, initial encounter; Y93.89 Activity, other specified; Y92.89 Other specified places as the place of occurrence of the external cause; Y99.8 Other external cause status; Z88.0 Allergy status to penicillin
CPT/HCPCS: 99282

== ENCOUNTER 2021-09-13 00:15 | Emergency (ER) | payer MEDICAID ==
[2021-09-13 00:32] VITALS: BP 116/79
== END 2021-09-13 23:13 | disposition left against medical advice (07) ==
LOC: ED 00:15
DX: J00 Acute nasopharyngitis [common cold] (principal); R68.83 Chills (without fever); Z53.21 Procedure and treatment not carried out due to patient leaving prior to being seen by health care provider
CPT/HCPCS: 82962

== ENCOUNTER 2021-09-25 10:54 | Emergency (ER) | payer MEDICAID ==
[2021-09-25 10:56] VITALS: BP 140/80
== END 2021-09-26 02:45 | disposition left against medical advice (07) ==
LOC: ED 10:54
DX: T67.01XA Heatstroke and sunstroke, initial encounter (principal); Z53.21 Procedure and treatment not carried out due to patient leaving prior to being seen by health care provider; X58.XXXA Exposure to other specified factors, initial encounter; Y93.89 Activity, other specified; Y92.89 Other specified places as the place of occurrence of the external cause; Y99.8 Other external cause status

== ENCOUNTER 2021-10-05 23:39 | Emergency (ER) | payer MEDICAID ==
[2021-10-06 02:06] VITALS: BP 137/91
--- NOTE | 2021-10-06 13:55 | XRay Report ---
CHEST 2 VIEWS INDICATION / CLINICAL INFORMATION: Chest Pain. COMPARISON: 03/06/2013 FINDINGS: SUPPORT DEVICES: None. HEART / MEDIASTINUM: There is mild cardiomegaly, slightly increased since the previous exam. LUNGS / PLEURA: No significant pulmonary or pleural abnormality. No pneumothorax. ADDITIONAL FINDINGS: No significant additional findings. IMPRESSION: 1. Cardiomegaly. Signer Name: Toy Coronado Jr, MD Signed: 10/06/2021 1:51 PM Workstation Name: [id number]
--- NOTE | 2021-10-06 14:12 | Emergency Department Report ---
ED Palpitations HPI - General Chief Complaint: Chest Pain Stated Complaint: HEART PROBLEMS Time Seen by Provider: 10/06/21 14:09 Source: patient Mode of arrival: Ambulatory Limitations: No Limitations - History of Present Illness Initial Comments: Patient is a 36-year-old female presenting to ED with complaint of palpitations for the past day. She reports history of heart murmur. Also states she lost several of her medications and requests refills. - Related Data Previous Rx's Medication Instructions Recorded Last Taken Type Potassium Chloride [K-Dur] 20 meq PO QDAY #10 tablet 12/14/12 03/05/[address] [Depakote Dr] 250 mg PO TID #30 tablet 02/01/13 03/05/13 Rx risperiDONE [RisperDAL] 2 mg PO QDAY #10 tab 02/01/13 03/05/13 Rx Ibuprofen [Motrin] 600 mg PO Q6H PRN #20 tablet 02/13/13 03/05/13 Rx Fluticasone [Flonase] 2 spray NS QDAY #1 bottle 12/06/14 Unknown Rx hydrOXYzine PAMOATE [Vistaril] 25 mg PO Q6HR PRN #20 capsule 12/22/18 Unknown Rx risperiDONE [Risperdal] 2 mg PO QDAY #30 tablet 12/22/18 Unknown Rx OLANzapine [ZyPREXA] 5 mg PO QDAY #30 tablet 07/28/21 Unknown Rx Ferrous Sulfate [Feosol 325 MG tab] 325 mg PO BID #60 tablet 07/31/21 Unknown Rx Furosemide [Lasix] 20 mg PO DAILY #30 tablet 10/06/21 Unknown Rx Iron [Iron 18 MG TAB] 18 mg PO BID #60 tab 10/06/21 Unknown Rx Metoprolol [Lopressor TAB] 25 mg PO HS #30 tablet 10/06/21 Unknown Rx OLANzapine [ZyPREXA] 10 mg PO BIDWM #60 tablet 10/06/21 Unknown Rx Allergies Allergy/AdvReac Type Severity Reaction Status Date / Time Penicillins Allergy Unknown Verified 09/25/21 10:56 diphenhydramine HCl AdvReac Intermediate nausea, Verified 09/25/21 10:56 [From Benadryl] syncope ED Review of Systems ROS: Stated complaint: HEART PROBLEMS Other details as noted in HPI Constitutional: denies: chills, fever ENT: denies: ear pain, throat pain Respiratory: denies: cough, shortness of breath, wheezing Cardiovascular: palpitations Gastrointestinal: denies: abdominal pain, nausea, diarrhea Musculoskeletal: denies: back pain, joint swelling, arthralgia Skin: denies: rash, lesions Neurological: denies: headache, weakness, paresthesias Psychiatric: denies: anxiety, depression ED Past Medical Hx - Past Medical History Hx Psychiatric Treatment: Yes (schizo-effective, bipolar) Additional medical history: manic/depression - Social History Smoking Status: Unknown if ever smoked - Medications Home Medications: Home Medications Medication Instructions Recorded Confirmed Last Taken Type Potassium Chloride [K-Dur] 20 meq PO QDAY #10 tablet 12/14/12 03/06/13 03/05/[address] [Depakote Dr] 250 mg PO TID #30 tablet 02/01/13 03/06/13 03/05/13 Rx risperiDONE [RisperDAL] 2 mg PO QDAY #10 tab 02/01/13 03/06/13 03/05/13 Rx Ibuprofen [Motrin] 600 mg PO Q6H PRN #20 tablet 02/13/13 03/06/13 03/05/13 Rx Fluticasone [Flonase] 2 spray NS QDAY #1 bottle 12/06/14 Unknown Rx hydrOXYzine PAMOATE [Vistaril] 25 mg PO Q6HR PRN #20 capsule 12/22/18 Unknown Rx risperiDONE [Risperdal] 2 mg PO QDAY #30 tablet 12/22/18 Unknown Rx OLANzapine [ZyPREXA] 5 mg PO QDAY #30 tablet 07/28/21 Unknown Rx Ferrous Sulfate [Feosol 325 MG tab] 325 mg PO BID #60 tablet 07/31/21 Unknown Rx Furosemide [Lasix] 20 mg PO DAILY #30 tablet 10/06/21 Unknown Rx Iron [Iron 18 MG TAB] 18 mg PO BID #60 tab 10/06/21 Unknown Rx Metoprolol [Lopressor TAB] 25 mg PO HS #30 tablet 10/06/21 Unknown Rx OLANzapine [ZyPREXA] 10 mg PO BIDWM #60 tablet 10/06/21 Unknown Rx ED Physical Exam - General Limitations: No Limitations General appearance: alert, in no apparent distress - Head Head exam: Present: atraumatic, normocephalic - Respiratory Respiratory exam: Present: normal lung sounds bilaterally. Absent: respiratory distress - Cardiovascular Cardiovascular Exam: Present: regular rate, normal rhythm, normal heart sounds - GI/Abdominal GI/Abdominal exam: Present: soft. Absent: distended, tenderness - Rectal Rectal exam: Present: deferred - Neurological Exam Neurological exam: Present: alert, oriented X3 - Psychiatric Psychiatric exam: Present: normal affect, normal mood - Skin Skin exam: Present: warm, dry, intact, normal color ED Course Vital Signs 10/06/21 02:01 Temperature 98.1 F Pulse Rate 99 H Respiratory 16 Rate Blood Pressure 137/91 O2 Sat by Pulse 98 Oximetry ED Medical Decision Making - Lab Data Result diagrams: 10/06/21 13:20 10/06/21 13:20 - Medical Decision Making EKG sinus rhythm. No acute findings. CBC and CMP grossly unremarkable. I discussed results with patient. She is stable for discharge home with return precautions. Will refill her home meds Critical care attestation.: If time is entered above; I have spent that time in minutes in the direct care of this critically ill patient, excluding procedure time. ED Disposition Clinical Impression: Palpitations Disposition: 01 HOME / SELF CARE / HOMELESS Is pt being admited?: No Condition: Stable Instructions: Palpitations, [id number] Referrals: PRIMARY CARE, [Primary Care Provider] - 3-5 Days
[2021-10-06 15:16] LABS: Mean Corpuscular HGB Conc 30 % (30-34); Mean Corpuscular Volume 71 fl (79-97); Platelet Count 353 K/mm3 (140-440); Red Blood Count 4.56 M/mm3 (3.65-5.03)
[2021-10-06 15:18] LABS: Hematocrit 32.2 % (30.3-42.9); Hemoglobin 9.5 gm/dl (10.1-14.3)
[2021-10-06 15:51] LABS: Alanine Aminotransferase 12 units/L (7-56); Blood Urea Nitrogen 9 mg/dL (7-17); Calcium 9.3 mg/dL (8.4-10.2); Hemolysis Index 4
[2021-10-06 15:53] LABS: Basophils % (Manual) 0 % (0.0-1.8); Total Cells Counted 100
[2021-10-06 15:54] LABS: BUN/Creatinine Ratio 15
[2021-10-06 15:57] LABS: Anisocytosis 2+; Hypochromasia 2+; Ovalocytes Rare; Poikilocytosis 1+; Spherocytes Rare; Target Cells Rare
[2021-10-06 15:58] LABS: Large Platelets Rare; Platelet Estimate Consistent w Auto
--- NOTE | 2021-10-07 17:39 | Electrocardiograph Report ---
[facility] Test Date: 2021-10-06 Test Time: 02:09:20 Pat Name: CORINNE VASQUEZ Department: Room: Gender: F Bottom Buffer: JOHNATHAN : 1985 Requested By: ED DOC Order Number: [id number] Reading MD: Tobias Yarbrough Measurements Intervals [place] Rate: 92 P: 68 CA: 190 QRS: 14 QRSD: 87 T: 61 QT: 350 QTc: 432 Interpretive Statements Sinus rhythm Probable left atrial enlargement Consider old anterior infarct Compared to ECG 07/31/2021 11:12:29 No significant change Electronically Signed On 10-07-2021 17:39:02 EDT by Tobias Yarbrough
== END 2021-10-06 16:56 | disposition home or self-care (01) ==
LOC: ED 23:39
DX: R00.2 Palpitations (principal); F30.9 Manic episode, unspecified; Z88.0 Allergy status to penicillin; Z88.8 Allergy status to other drugs, medicaments and biological substances
CPT/HCPCS: 36415; 71046; 80053; 84484; 85007; 85025; 93005; 99283

== ENCOUNTER 2021-10-07 19:28 | Emergency (ER) | payer MEDICAID ==
[2021-10-07] MEDS ORDERED: SODIUM CHLORIDE 0.9% 1000 ML 1,000 ML IV ONE (20:23)
[2021-10-07 20:52] LABS: Mean Corpuscular HGB Conc 30 % (30-34); Mean Corpuscular Volume 71 fl (79-97); Platelet Count 345 K/mm3 (140-440)
[2021-10-07 21:23] LABS: Hemoglobin 10.1 gm/dl (10.1-14.3)
[2021-10-07 21:24] LABS: Hematocrit 34.2 % (30.3-42.9)
[2021-10-07 21:58] LABS: Creatine Kinase MB 1.4 ng/mL (0.0-4.0)
[2021-10-07 22:01] LABS: Alanine Aminotransferase 15 units/L (7-56); Blood Urea Nitrogen 6 mg/dL (7-17); Calcium 9.4 mg/dL (8.4-10.2); Hemolysis Index 1
[2021-10-07 22:03] LABS: BUN/Creatinine Ratio 9
--- NOTE | 2021-10-07 22:39 | XRay Report ---
CHEST 1 VIEW 10/07/2021 9:32 PM INDICATION / CLINICAL INFORMATION: Lightheadedness/Dizziness. COMPARISON: Previous day. FINDINGS: SUPPORT DEVICES: None. HEART / MEDIASTINUM: Stable cardiomegaly. LUNGS / PLEURA: Increasing interstitial change greatest at the bases. No pneumothorax. ADDITIONAL FINDINGS: No significant additional findings. IMPRESSION: Development of mild vascular congestion/edema. Signer Name: Dalton Floyd MD Signed: 10/07/2021 10:34 PM Workstation Name: [id number]
--- NOTE | 2021-10-07 22:45 | XRay Report ---
LEFT KNEE 2 VIEWS INDICATION / CLINICAL INFORMATION: pain. COMPARISON: None available. FINDINGS: BONES / JOINT(S): No acute fracture or subluxation. No significant arthritis. SOFT TISSUES: Diffuse soft tissue swelling. ADDITIONAL FINDINGS: None. Signer Name: Dalton Floyd MD Signed: 10/07/2021 10:41 PM Workstation Name: [id number]
[2021-10-07 22:57] LABS: Basophils % (Manual) 0 % (0.0-1.8); Total Cells Counted 100
[2021-10-07 22:58] LABS: Anisocytosis 3+; Hypochromasia 2+; Large Platelets Rare; Ovalocytes Rare; Platelet Estimate Consistent w Auto; Poikilocytosis 1+; Target Cells Rare
--- NOTE | 2021-10-07 23:05 | Emergency Department Report ---
ED General Adult HPI - General Chief complaint: Hyperglycemia Stated complaint: HYPERGLYCEMIA PUI?: No Time Seen by Provider: 10/07/21 20:16 Source: patient Mode of arrival: Stretcher Limitations: No Limitations - History of Present Illness Initial comments: Reporting left knee pain since yesterday. (Was seen and treated yesterday) Denies injury. Accucheck was 350 per EMS. -: Gradual, hour(s) Worsens with: none Associated Symptoms: denies: denies other symptoms, confusion, chest pain, cough - Related Data Previous Rx's Medication Instructions Recorded Last Taken Type Potassium Chloride [K-Dur] 20 meq PO QDAY #10 tablet 12/14/12 03/05/[address] [Depakote Dr] 250 mg PO TID #30 tablet 02/01/13 03/05/13 Rx risperiDONE [RisperDAL] 2 mg PO QDAY #10 tab 02/01/13 03/05/13 Rx Ibuprofen [Motrin] 600 mg PO Q6H PRN #20 tablet 02/13/13 03/05/13 Rx Fluticasone [Flonase] 2 spray NS QDAY #1 bottle 12/06/14 Unknown Rx hydrOXYzine PAMOATE [Vistaril] 25 mg PO Q6HR PRN #20 capsule 12/22/18 Unknown Rx risperiDONE [Risperdal] 2 mg PO QDAY #30 tablet 12/22/18 Unknown Rx OLANzapine [ZyPREXA] 5 mg PO QDAY #30 tablet 07/28/21 Unknown Rx Ferrous Sulfate [Feosol 325 MG tab] 325 mg PO BID #60 tablet 07/31/21 Unknown Rx Furosemide [Lasix] 20 mg PO DAILY #30 tablet 10/06/21 Unknown Rx Iron [Iron 18 MG TAB] 18 mg PO BID #60 tab 10/06/21 Unknown Rx Metoprolol [Lopressor TAB] 25 mg PO HS #30 tablet 10/06/21 Unknown Rx OLANzapine [ZyPREXA] 10 mg PO BIDWM #60 tablet 10/06/21 Unknown Rx hydrOXYzine PAMOATE [Vistaril] 25 mg PO Q6HR #20 capsule 10/06/21 Unknown Rx Allergies Allergy/AdvReac Type Severity Reaction Status Date / Time Penicillins Allergy Unknown Verified 09/25/21 10:56 diphenhydramine HCl AdvReac Intermediate nausea, Verified 09/25/21 10:56 [From Benadryl] syncope ED Review of Systems ROS: Stated complaint: HYPERGLYCEMIA Other details as noted in HPI Constitutional: denies: chills, fever Eyes: denies: eye pain, eye discharge, vision change ENT: denies: ear pain, throat pain Respiratory: denies: cough, shortness of breath, wheezing Cardiovascular: denies: chest pain, palpitations Endocrine: no symptoms reported Gastrointestinal: denies: abdominal pain, nausea, diarrhea Genitourinary: denies: urgency, dysuria, discharge Musculoskeletal: denies: back pain, joint swelling, arthralgia Skin: denies: rash, lesions Neurological: denies: headache, weakness, paresthesias Psychiatric: denies: anxiety, depression Hematological/Lymphatic: denies: easy bleeding, easy bruising ED Past Medical Hx - Past Medical History Previous Medical History?: Yes Hx Psychiatric Treatment: Yes (schizo-effective, bipolar) Additional medical history: manic/depression - Surgical History Past Surgical History?: No - Social History Smoking Status: Never Smoker Substance Use Type: None - Medications Home Medications: Home Medications Medication Instructions Recorded Confirmed Last Taken Type Potassium Chloride [K-Dur] 20 meq PO QDAY #10 tablet 12/14/12 03/06/13 03/05/13 Rx Divalproex [Teo Baker] 250 mg PO TID #30 tablet 02/01/13 03/06/13 03/05/13 Rx risperiDONE [RisperDAL] 2 mg PO QDAY #10 tab 02/01/13 03/06/13 03/05/13 Rx Ibuprofen [Motrin] 600 mg PO Q6H PRN #20 tablet 02/13/13 03/06/13 03/05/13 Rx Fluticasone [Flonase] 2 spray NS QDAY #1 bottle 12/06/14 Unknown Rx hydrOXYzine PAMOATE [Vistaril] 25 mg PO Q6HR PRN #20 capsule 12/22/18 Unknown Rx risperiDONE [Risperdal] 2 mg PO QDAY #30 tablet 12/22/18 Unknown Rx OLANzapine [ZyPREXA] 5 mg PO QDAY #30 tablet 07/28/21 Unknown Rx Ferrous Sulfate [Feosol 325 MG tab] 325 mg PO BID #60 tablet 07/31/21 Unknown Rx Furosemide [Lasix] 20 mg PO DAILY #30 tablet 10/06/21 Unknown Rx Iron [Iron 18 MG TAB] 18 mg PO BID #60 tab 10/06/21 Unknown Rx Metoprolol [Lopressor TAB] 25 mg PO HS #30 tablet 10/06/21 Unknown Rx OLANzapine [ZyPREXA] 10 mg PO BIDWM #60 tablet 10/06/21 Unknown Rx hydrOXYzine PAMOATE [Vistaril] 25 mg PO Q6HR #20 capsule 10/06/21 Unknown Rx ED Physical Exam - General Limitations: No Limitations General appearance: alert, in no apparent distress - Head Head exam: Present: atraumatic, normocephalic - Eye Eye exam: Present: normal appearance - ENT ENT exam: Present: mucous membranes moist - Neck Neck exam: Present: normal inspection - Respiratory Respiratory exam: Present: normal lung sounds bilaterally. Absent: respiratory distress - Cardiovascular Cardiovascular Exam: Present: regular rate, normal rhythm. Absent: systolic murmur, diastolic murmur, rubs, gallop - GI/Abdominal GI/Abdominal exam: Present: soft, normal bowel sounds - Extremities Exam Extremities exam: Present: normal inspection - Back Exam Back exam: Present: normal inspection - Neurological Exam Neurological exam: Present: alert, oriented X3 - Psychiatric Psychiatric exam: Present: normal affect, normal mood - Skin Skin exam: Present: warm, dry, intact, normal color. Absent: rash ED Course Vital Signs 10/07/21 20:02 Temperature 98 F Pulse Rate 82 Respiratory 18 Rate Blood Pressure 138/82 O2 Sat by Pulse 100 Oximetry ED Medical Decision Making - Lab Data Result diagrams: 10/07/21 20:29 10/07/21 20:29 Critical care attestation.: If time is entered above; I have spent that time in minutes in the direct care of this critically ill patient, excluding procedure time. ED Disposition Clinical Impression: Hyperglycemia Disposition: 01 HOME / SELF CARE / HOMELESS Is pt being admited?: No Does the pt Need Aspirin: No Condition: Stable Instructions: Hyperglycemia, [id number]
[2021-10-07 23:08] VITALS: BP 131/85
== END 2021-10-07 23:00 | disposition home or self-care (01) ==
LOC: ED 19:28
DX: R73.9 Hyperglycemia, unspecified (principal); F31.9 Bipolar disorder, unspecified; Z88.0 Allergy status to penicillin; Z91.09 Other allergy status, other than to drugs and biological substances; Z79.899 Other long term (current) drug therapy
CPT/HCPCS: 36415; 71045; 80053; 80320; 82010; 82550; 82553; 82962; 84484; 85007; 85025; 86140; 99284; G0480

== ENCOUNTER 2021-10-08 03:16 | Emergency (ER) | payer MEDICAID ==
[2021-10-08 05:13] VITALS: BP 143/112
--- NOTE | 2021-10-08 05:49 | XRay Report ---
LEFT FOOT 3 VIEWS INDICATION / CLINICAL INFORMATION: INJURY. COMPARISON: None available. FINDINGS: BONES / JOINT(S): No acute fracture or subluxation. No significant arthritis. SOFT TISSUES: Diffuse soft tissue swelling. ADDITIONAL FINDINGS: None. Signer Name: Dalton Floyd MD Signed: 10/08/2021 5:45 AM Workstation Name: [id number]
[2021-10-08] MEDS ORDERED: IBUPROFEN 800 MG TAB PO ONE (09:55)
--- NOTE | 2021-10-08 10:05 | Emergency Department Report ---
ED General Adult HPI - General Chief complaint: Extremity Injury, Lower Stated complaint: FOOT PAIN Time Seen by Provider: 10/08/21 09:54 Source: patient Mode of arrival: Ambulatory Limitations: No Limitations - History of Present Illness Initial comments: Patient 36-year-old female who presents for left lateral foot pain. Patient twisted her foot at [employer] 2 days ago. Patient describes pain at 4/10 with foot swelling pain is exacerbated by weightbearing. However patient is amatory patient walked from home to ED today. With minimal limp. There is no abrasion laceration or bleeding. There is no gross deformity. - Related Data Previous Rx's Medication Instructions Recorded Last Taken Type Potassium Chloride [K-Dur] 20 meq PO QDAY #10 tablet 12/14/12 03/05/[address] [Depakote Dr] 250 mg PO TID #30 tablet 02/01/13 03/05/13 Rx risperiDONE [RisperDAL] 2 mg PO QDAY #10 tab 02/01/13 03/05/13 Rx Ibuprofen [Motrin] 600 mg PO Q6H PRN #20 tablet 02/13/13 03/05/13 Rx Fluticasone [Flonase] 2 spray NS QDAY #1 bottle 12/06/14 Unknown Rx hydrOXYzine PAMOATE [Vistaril] 25 mg PO Q6HR PRN #20 capsule 12/22/18 Unknown Rx risperiDONE [Risperdal] 2 mg PO QDAY #30 tablet 12/22/18 Unknown Rx OLANzapine [ZyPREXA] 5 mg PO QDAY #30 tablet 07/28/21 Unknown Rx Ferrous Sulfate [Feosol 325 MG tab] 325 mg PO BID #60 tablet 07/31/21 Unknown Rx Furosemide [Lasix] 20 mg PO DAILY #30 tablet 10/06/21 Unknown Rx Iron [Iron 18 MG TAB] 18 mg PO BID #60 tab 10/06/21 Unknown Rx Metoprolol [Lopressor TAB] 25 mg PO HS #30 tablet 10/06/21 Unknown Rx OLANzapine [ZyPREXA] 10 mg PO BIDWM #60 tablet 10/06/21 Unknown Rx hydrOXYzine PAMOATE [Vistaril] 25 mg PO Q6HR #20 capsule 10/06/21 Unknown Rx Ferrous Sulfate [Ferrous Sulfate 324 mg PO DAILY #30 tab 10/08/21 Unknown Rx 324 MG] Ibuprofen [Motrin 800 MG tab] 800 mg PO Q8HR PRN #30 tablet 10/08/21 Unknown Rx Allergies Allergy/AdvReac Type Severity Reaction Status Date / Time Penicillins Allergy Unknown Verified 09/25/21 10:56 diphenhydramine HCl AdvReac Intermediate nausea, Verified 09/25/21 10:56 [From Benadryl] syncope ED Review of Systems ROS: Stated complaint: FOOT PAIN Other details as noted in HPI Constitutional: denies: chills, fever Eyes: denies: eye pain, eye discharge, vision change ENT: denies: ear pain, throat pain Respiratory: denies: cough, shortness of breath, wheezing Cardiovascular: denies: chest pain, palpitations Endocrine: no symptoms reported Gastrointestinal: denies: abdominal pain, nausea, diarrhea Genitourinary: denies: urgency, dysuria, discharge Musculoskeletal: other. denies: back pain, arthralgia Skin: denies: rash, lesions Neurological: denies: headache, weakness, paresthesias Psychiatric: denies: anxiety, depression Hematological/Lymphatic: denies: easy bleeding, easy bruising ED Past Medical Hx - Past Medical History Hx Psychiatric Treatment: Yes (schizo-effective, bipolar) Additional medical history: manic/depression - Social History Smoking Status: Never Smoker Substance Use Type: None - Medications Home Medications: Home Medications Medication Instructions Recorded Confirmed Last Taken Type Potassium Chloride [K-Dur] 20 meq PO QDAY #10 tablet 12/14/12 03/06/13 03/05/13 Rx Divalproex [Teo Baker] 250 mg PO TID #30 tablet 02/01/13 03/06/13 03/05/13 Rx risperiDONE [RisperDAL] 2 mg PO QDAY #10 tab 02/01/13 03/06/13 03/05/13 Rx Ibuprofen [Motrin] 600 mg PO Q6H PRN #20 tablet 02/13/13 03/06/13 03/05/13 Rx Fluticasone [Flonase] 2 spray NS QDAY #1 bottle 12/06/14 Unknown Rx hydrOXYzine PAMOATE [Vistaril] 25 mg PO Q6HR PRN #20 capsule 12/22/18 Unknown Rx risperiDONE [Risperdal] 2 mg PO QDAY #30 tablet 12/22/18 Unknown Rx OLANzapine [ZyPREXA] 5 mg PO QDAY #30 tablet 07/28/21 Unknown Rx Ferrous Sulfate [Feosol 325 MG tab] 325 mg PO BID #60 tablet 07/31/21 Unknown Rx Furosemide [Lasix] 20 mg PO DAILY #30 tablet 10/06/21 Unknown Rx Iron [Iron 18 MG TAB] 18 mg PO BID #60 tab 10/06/21 Unknown Rx Metoprolol [Lopressor TAB] 25 mg PO HS #30 tablet 10/06/21 Unknown Rx OLANzapine [ZyPREXA] 10 mg PO BIDWM #60 tablet 10/06/21 Unknown Rx hydrOXYzine PAMOATE [Vistaril] 25 mg PO Q6HR #20 capsule 10/06/21 Unknown Rx Ferrous Sulfate [Ferrous Sulfate 324 mg PO DAILY #30 tab 10/08/21 Unknown Rx 324 MG] Ibuprofen [Motrin 800 MG tab] 800 mg PO Q8HR PRN #30 tablet 10/08/21 Unknown Rx ED Physical Exam - General Limitations: No Limitations General appearance: alert, in no apparent distress - Head Head exam: Present: normocephalic, normal inspection - Eye Eye exam: Present: EOMI Pupils: Present: normal accommodation - ENT ENT exam: Present: mucous membranes moist - Neck Neck exam: Present: normal inspection, full ROM. Absent: tenderness - Respiratory Respiratory exam: Present: normal lung sounds bilaterally. Absent: respiratory distress - Cardiovascular Cardiovascular Exam: Present: regular rate, normal rhythm, normal heart sounds. Absent: systolic murmur, diastolic murmur, rubs, gallop - GI/Abdominal GI/Abdominal exam: Present: soft, normal bowel sounds. Absent: distended, tenderness - Rectal Rectal exam: Present: deferred - Extremities Exam Extremities exam: Present: full ROM, normal capillary refill - Expanded Lower Extremity Exam Left Foot/Toe exam: Present: full ROM, swelling. Absent: tenderness, ecchymosis, deformity, crepidus Neuro vascular tendon exam: Absent: pulse deficit, motor deficit, sensory deficit, tendon deficit Gait: Positive: observed and limited by pain - Back Exam Back exam: Present: normal inspection, full ROM. Absent: CVA tenderness (R), CVA tenderness (L) - Neurological Exam Neurological exam: Present: alert, oriented X3, CN II-XII intact - Expanded Neurological Exam Expanded Patient oriented to: Present: person, place, time Speech: Present: fluid speech Motor strength exam: RUE: 5, LUE: 5, RLE: 5, LLE: 5 DTR: ankle (R): 1+, ankle (L): 1+ Best Eye Response ([place]): (4) open spontaneously Best Motor Response ([place]): (6) obeys commands Best Verbal Response ([place]): (5) oriented Latoya Total: 15 - Psychiatric Psychiatric exam: Present: normal affect, normal mood - Skin Skin exam: Present: warm, dry, intact, normal color. Absent: rash ED Course Vital Signs 10/08/21 04:24 Temperature 98.5 F Pulse Rate 87 Respiratory 18 Rate Blood Pressure 143/112 O2 Sat by Pulse 100 Oximetry ED Medical Decision Making - Radiology Data Radiology results: report reviewed, image reviewed LEFT FOOT 3 VIEWS INDICATION / CLINICAL INFORMATION: INJURY. COMPARISON: None available. FINDINGS: BONES / JOINT(S): No acute fracture or subluxation. No significant arthritis. SOFT TISSUES: Diffuse soft tissue swelling. ADDITIONAL FINDINGS: None. Signer Name: Dalton Floyd MD Signed: 10/08/2021 5:45 AM Workstation Name: [id number] Transcribed By: ES Dictated By: Dalton Floyd MD Electronically Authenticated By: Dalton Floyd MD Signed Date/Time: 10/08/21544 DD/ 3 TD/TT: - Medical Decision Making X-ray no fracture. No subluxation no dislocation plan DC to home NSAIDs, Rafy wrap rice therapy. Primary care doctor in 2 to 3 days. Patient verbalized agreement understanding discharge plan patient DC'd home in stable condition at this time. Critical care attestation.: If time is entered above; I have spent that time in minutes in the direct care of this critically ill patient, excluding procedure time. ED Disposition Clinical Impression: Strain of foot, left Qualifiers: Encounter type: initial encounter Qualified Code(s): S96.912A - Strain of unspecified muscle and tendon at ankle and foot level, left foot, initial encounter Disposition: HOME / SELF CARE / HOMELESS Is pt being admited?: No Does the pt Need Aspirin: No Condition: Stable Instructions: Elastic Bandage and RICE Therapy Additional Instructions: Take medication as prescribed, follow-up with your doctor in 2 to 3 days. Return to emergency department should symptoms worsen. Prescriptions: Ferrous Sulfate [Ferrous Sulfate 324 MG] 324 mg PO DAILY #30 tab Ibuprofen [Motrin 800 MG tab] 800 mg PO Q8HR PRN #30 tablet PRN Reason: Pain Referrals: CHANTAL E[facility] MD [Staff Physician] - 3-5 Days Forms: Work/School Release Form(ED) Time of Disposition: 10:17
== END 2021-10-08 10:56 | disposition home or self-care (01) ==
LOC: ED 03:16
DX: S96.912A Strain of unspecified muscle and tendon at ankle and foot level, left foot, initial encounter (principal); T14.90XA Injury, unspecified, initial encounter; X58.XXXA Exposure to other specified factors, initial encounter; Y93.89 Activity, other specified; Y92.89 Other specified places as the place of occurrence of the external cause; Y99.8 Other external cause status
CPT/HCPCS: 99283